=== PATIENT | female | born 1980 | race Caucasian/White ===

== ENCOUNTER 2023-04-21 10:20 | Day surgery (SDC) | payer BC ==
[~2023-04-21] VITALS: Ht 157.5 cm; Wt 65.8 kg
[~2023-04-21 10:20] MED LIST: CLON0.2T PO; NS 1,000 ML IV ONE
[2023-04-21] MEDS ORDERED: propofoL 200 MG/20 ML VIAL As Ordered ONE (11:37)
[2023-04-21 11:43] VITALS: TEMP 96.7
[2023-04-21 11:58] VITALS: BP 127/86; O2SAT 98
== END 2023-04-21 12:03 | disposition home or self-care (01) ==
LOC: M OPP 10:20
PROVIDERS: ATTEND Surgery
DX: K64.2 Third degree hemorrhoids (principal); K92.1 Melena; Z79.3 Long term (current) use of hormonal contraceptives; Z79.899 Other long term (current) drug therapy

== ENCOUNTER → 2023-12-20 | Outpatient (CLI) | payer BC ==
[~2023-12-20] MED LIST changes: -NS 1,000 ML IV ONE
== END ==
LOC: M WHC 14:34
PROVIDERS: ATTEND Physician Assistant Medical
DX: N63.11 Unspecified lump in the right breast, upper outer quadrant (principal)
CPT/HCPCS: 76641; 77066; G0279